=== PATIENT | male | born 1950 | race Caucasian/White ===

== ENCOUNTER 2017-05-24 16:15 | Emergency (ER) | payer MEDICARE, OTHER ==
[~2017-05-24] VITALS: Ht 188 cm; Wt 86.2 kg
[~2017-05-24 16:15] MED LIST: AMOX875T PO; BENZ100C PO; DEXT118L3 PO; HYDR-971 PO; IBUP200C9 PO; MULT1TAB52 PO; OSEL75CA PO; [UNRECOGNIZED DRUG - REMARK]
--- NOTE | 2017-05-24 17:11 | EKG ---
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
[2017-05-24 17:24] LABS: BASO # 0.1 x10^3/uL (0.0-0.2); BASO % 1 % (0-3); EOS # 0.1 x10^3/uL (0.0-0.7); EOS % 1 % (0-3); HEMATOCRIT 44.9 % (39.0-53.0); HEMOGLOBIN 15.3 g/dL (13.0-17.5); LYMPH % 11 % (24-48); MEAN CORPUSCULAR HEMOGLOBIN 29 pg (25-35); MEAN CORPUSCULAR HGB CONC 34 g/dL (31-37); MEAN CORPUSCULAR VOLUME 85 fL (79-100); MONO # 1.3 x10^3/uL (0.0-1.1); MONO % 13 % (0-9); NEUT # 7.2 x10^3uL (1.8-7.7); NEUT % 74 % (31-73); PLATELET COUNT 202 x10^3/uL (140-400); RED BLOOD COUNT 5.31 x10^6/uL (4.30-5.70); RED CELL DISTRIBUTION WIDTH 13.2 % (11.5-14.5); WHITE BLOOD COUNT 9.8 x10^3/uL (4.0-11.0)
[2017-05-24 17:27] LABS: CALCIUM 9.2 mg/dL (8.5-10.1)
[2017-05-24] MEDS ORDERED: ONDANSETRON PF 4 MG/2 ML VIAL. IV ONE (17:30)
[2017-05-24 17:44] LABS: INFLUENZA A PATIENT POSITIVE (NEGATIVE); INFLUENZA B PATIENT NEGATIVE (NEGATIVE)
[2017-05-24] MEDS ORDERED: ALBU2.5V14 NEB (17:47)
[2017-05-24] MEDS ORDERED: OSEL75CA PO (17:50)
--- NOTE | 2017-05-24 17:51 | PHYS DOC ---
Past History Past Medical History: Asthma Past Surgical History: No Surgical History Alcohol Use: None Drug Use: None Adult General Chief Complaint Chief Complaint: SHORTNESS OF BREATH HPI HPI Patient is a [age] year old [sex] who presents with [] Review of Systems Review of Systems Constitutional: Denies fever or chills [] Eyes: Denies change in visual acuity, redness, or eye pain [] HENT: Denies nasal congestion or sore throat [] Respiratory: Denies cough or shortness of breath [] Cardiovascular: No additional information not addressed in HPI [] GI: Denies abdominal pain, nausea, vomiting, bloody stools or diarrhea [] : Denies dysuria or hematuria [] Musculoskeletal: Denies back pain or joint pain [] Integument: Denies rash or skin lesions [] Neurologic: Denies headache, focal weakness or sensory changes [] Endocrine: Denies polyuria or polydipsia [] All other systems were reviewed and found to be within normal limits, except as documented in this note. Current Medications Current Medications Current Medications Medications (Trade) Dose Ordered Sig/Ibis Start Time Stop Time Status Last Admin Dose Admin Ondansetron HCl (Zofran) 4 mg 1X ONCE 05/24/17 17:30 05/24/17 17:31 DC 05/24/17 17:18 4 MG Allergies Allergies Allergies Uncoded Allergies Type Severity Reaction Last Updated Verified MOST ANTIBIOTICS Adverse Reaction Unknown 05/24/17 Physical Exam Physical Exam Constitutional: Well developed, well nourished, no acute distress, non-toxic appearance. [] HENT: Normocephalic, atraumatic, bilateral external ears normal, oropharynx moist, no oral exudates, nose normal. [] Eyes: PERRLA, EOMI, conjunctiva normal, no discharge. [] Neck: Normal range of motion, no tenderness, supple, no stridor. [] Cardiovascular:Heart rate regular rhythm, no murmur [] Lungs & Thorax: Bilateral breath sounds clear to auscultation [] Abdomen: Bowel sounds normal, soft, no tenderness, no masses, no pulsatile masses. [] Skin: Warm, dry, no erythema, no rash. [] Back: No tenderness, no CVA tenderness. [] Extremities: No tenderness, no cyanosis, no clubbing, ROM intact, no edema. [] Neurologic: Alert and oriented X 3, normal motor function, normal sensory function, no focal deficits noted. [] Psychologic: Affect normal, judgement normal, mood normal. [] Current Patient Data Lab Results Laboratory Tests Test 05/24/17 16:45 05/24/17 16:58 White Blood Count 9.8 x10^3/uL (4.0-11.0) Red Blood Count 5.31 x10^6/uL (4.30-5.70) Hemoglobin 15.3 g/dL (13.0-17.5) Hematocrit 44.9 % (39.0-53.0) Mean Corpuscular Volume 85 fL (79-100) Mean Corpuscular Hemoglobin 29 pg (25-35) Mean Corpuscular Hemoglobin Concent 34 g/dL (31-37) Red Cell Distribution Width 13.2 % (11.5-14.5) Platelet Count 202 x10^3/uL (140-400) Neutrophils (%) (Auto) 74 % (31-73) Lymphocytes (%) (Auto) 11 % (24-48) Monocytes (%) (Auto) 13 % (0-9) Eosinophils (%) (Auto) 1 % (0-3) Basophils (%) (Auto) 1 % (0-3) Neutrophils # (Auto) 7.2 x10^3uL (1.8-7.7) Lymphocytes # (Auto) 1.0 x10^3/uL (1.0-4.8) Monocytes # (Auto) 1.3 x10^3/uL (0.0-1.1) Eosinophils # (Auto) 0.1 x10^3/uL (0.0-0.7) Basophils # (Auto) 0.1 x10^3/uL (0.0-0.2) Sodium Level 139 mmol/L (136-145) Chloride Level 103 mmol/L (98-107) Carbon Dioxide Level 24 mmol/L (21-32) Anion Gap 12 (6-14) Blood Urea Nitrogen 17 mg/dL (8-26) Creatinine 1.0 mg/dL (0.7-1.3) Estimated GFR (Cockcroft-Gault) 75.0 Glucose Level 112 mg/dL (70-99) Calcium Level 9.2 mg/dL (8.5-10.1) Troponin I Quantitative < 0.017 ng/mL (0-0.055) Influenza Type A (Rapid) Positive (NEGATIVE) Influenza Type B (Rapid) Negative (NEGATIVE) Laboratory Tests Test 05/24/17 16:45 White Blood Count 9.8 x10^3/uL (4.0-11.0) Red Blood Count 5.31 x10^6/uL (4.30-5.70) Hemoglobin 15.3 g/dL (13.0-17.5) Hematocrit 44.9 % (39.0-53.0) Mean Corpuscular Volume 85 fL (79-100) Mean Corpuscular Hemoglobin 29 pg (25-35) Mean Corpuscular Hemoglobin Concent 34 g/dL (31-37) Red Cell Distribution Width 13.2 % (11.5-14.5) Platelet Count 202 x10^3/uL (140-400) Neutrophils (%) (Auto) 74 % (31-73) H Lymphocytes (%) (Auto) 11 % (24-48) L Monocytes (%) (Auto) 13 % (0-9) H Eosinophils (%) (Auto) 1 % (0-3) Basophils (%) (Auto) 1 % (0-3) Neutrophils # (Auto) 7.2 x10^3uL (1.8-7.7) Lymphocytes # (Auto) 1.0 x10^3/uL (1.0-4.8) Monocytes # (Auto) 1.3 x10^3/uL (0.0-1.1) H Eosinophils # (Auto) 0.1 x10^3/uL (0.0-0.7) Basophils # (Auto) 0.1 x10^3/uL (0.0-0.2) Sodium Level 139 mmol/L (136-145) Potassium Level Pending Chloride Level 103 mmol/L (98-107) Carbon Dioxide Level 24 mmol/L (21-32) Anion Gap 12 (6-14) Blood Urea Nitrogen 17 mg/dL (8-26) Creatinine 1.0 mg/dL (0.7-1.3) Estimated GFR (Cockcroft-Gault) 75.0 Glucose Level 112 mg/dL (70-99) H Calcium Level 9.2 mg/dL (8.5-10.1) Troponin I Quantitative < 0.017 ng/mL (0-0.055) EKG EKG [] Radiology/Procedures Radiology/Procedures [] Course & Med Decision Making Course & Med Decision Making Pertinent Labs and Imaging studies reviewed. (See chart for details) [] Dragon Disclaimer Dragon Disclaimer This electronic medical record was generated, in whole or in part, using a voice recognition dictation system. Departure Departure: Impression: Primary Impression: Asthma exacerbation Additional Impression: Flu Disposition: 01 HOME, SELF-CARE Condition: STABLE Referrals: RADHA ADAME (PCP) Patient Instructions: Asthma, Adult Additional Instructions: Anupam was seen in the emergency department for cough and shortness of breath. No emergency medical condition was found on history or physical exam. He did have normal labs and imaging. His symptoms are most consistent with an asthma exacerbation. He is given a prescription for albuterol and advised continue using his Advair. He was also found to have influenza A and was given a prescription for Tamiflu. He is advised follow-up with his primary care doctor as needed for further management. Scripts Oseltamivir Phosphate (TAMIFLU) 75 Mg Capsule 1 CAP PO BID for 5 Days, #10 CAP Prov: BOZENA MAGANA MD 05/24/17 Albuterol Sulfate (ALBUTEROL SULFATE CONC NEB SOLN) 2.5 Mg/0.5 Ml Vial.neb 1 VIAL NEB Q6HRS for 14 Days, #120 VIAL 0 Refills Prov: BOZENA MAGANA MD 05/24/17 Problem Qualifiers Primary Impression: Asthma exacerbation Asthma severity: mild Asthma persistence: intermittent Qualified Codes: J45.21 - Mild intermittent asthma with (acute) exacerbation BOZENA MAGANA MD May 24, 2017 17:51
[2017-05-24 17:56] VITALS: BP 118/66
[2017-05-24 17:58] LABS: POTASSIUM 4.4 mmol/L (3.5-5.1)
--- NOTE | 2017-05-25 07:36 | RAD ---
Indication: Cough, congestion, fever Technique: Two-view chest radiograph was obtained. Comparison is from May 02, 2015. Findings: The lungs are clear. The cardiopulmonary silhouette is within normal limits. There is no pleural effusion. The bony structures are intact. Impression: No acute thoracic findings.
== END 2017-05-24 18:02 | disposition home or self-care (01) ==
LOC: ER 16:15
DX: J45.21 Mild intermittent asthma with (acute) exacerbation (principal)
CPT/HCPCS: 36415; 71046; 80048; 84484; 85025; 87804; 93005; 96374; 99285; J2405

== ENCOUNTER 2017-11-20 08:34 | Emergency (ER) | payer MEDICARE, OTHER ==
[~2017-11-20] VITALS: Ht 188 cm; Wt 86.2 kg
[~2017-11-20 08:34] MED LIST changes: +ALBU2.5V14 NEB
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
[2017-11-20] MEDS ORDERED: IV NORMAL SALINE 1,000ML 1,000 ML IV ONE (08:45)
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
[2017-11-20] MEDS ORDERED: ETOMIDATE 40 MG/20 ML VIAL. IV ONE (09:15)
[2017-11-20] MEDS ORDERED: ONDANSETRON PF 4 MG/2 ML VIAL. IV ONE ×2 (09:15→11:45)
--- NOTE | 2017-11-20 09:37 | RAD ---
Three-view right shoulder dated 11/20/2017. Comparison made to study dated same day. CLINICAL INDICATION: Reduction of shoulder dislocation. FINDINGS: 3 views of right shoulder show persistent anterior dislocation of the humeral head relative to the glenoid. Possible small impaction fractures of the anterior inferior glenoid and superior lateral humeral head. No displaced fracture. Osseous structures otherwise unremarkable. IMPRESSION: Persistent anterior shoulder dislocation. Electronically signed by: John Howe MD (11/20/2017 9:34 AM) [facility] [place]
[2017-11-20] MEDS ORDERED: KETAMINE HCL 500 MG/10 ML VIAL. IV ONE (10:15)
--- NOTE | 2017-11-20 10:25 | RAD ---
Two-view right shoulder dated 11/20/2017. Comparison made to study dated same day. Clinical data indication: Interval reduction of anterior dislocation. FINDINGS: 2 views right shoulder show interval reduction of anterior dislocation. Clinical humeral alignment is anatomic. There is a subtle curvilinear density along the inferior margin of the glenoid. There is also slight indentation of the superior lateral humeral head. Mild hypertrophic change of the AC joint. IMPRESSION: 1. Interval reduction of anterior dislocation. 2. Bony fragmentation at the inferior glenoid, raising the question of bony Bankart injury. 3. Possible small Hill-Sachs impaction fracture of the superior lateral humeral head. Electronically signed by: John Howe MD (11/20/2017 10:21 AM) [facility] [place]
[2017-11-20] MEDS ORDERED: IBUP800T19 PO (11:55)
[2017-11-20 13:36] VITALS: BP 141/74
== END 2017-11-20 12:48 | disposition home or self-care (01) ==
LOC: ER 08:34
DX: S43.004A Unspecified dislocation of right shoulder joint, initial encounter (principal); J45.909 Unspecified asthma, uncomplicated; Z88.1 Allergy status to other antibiotic agents; V29.9XXA Motorcycle rider (driver) (passenger) injured in unspecified traffic accident, initial encounter; Y93.55 Activity, bike riding; Y99.8 Other external cause status; Y92.89 Other specified places as the place of occurrence of the external cause
CPT/HCPCS: 23650; 73030; 96374; 96376; 99285; J2405; J3010; J3490; 99152; 99153; J7030

== ENCOUNTER 2018-05-22 08:18 | Emergency (ER) | payer MEDICARE, OTHER ==
[~2018-05-22] VITALS: Ht 188 cm; Wt 83.9 kg
[~2018-05-22 08:18] MED LIST changes: +HYDR-3165 PO; -HYDR-971 PO; +IBUP800T19 PO
[2018-05-22] MEDS ORDERED: METH4TAB2 PO (08:54)
[2018-05-22] MEDS ORDERED: AZIT250T PO ×2 (08:54→08:58)
--- NOTE | 2018-05-22 08:54 | PHYS DOC ---
Past History Past Medical History: Asthma, Pneumonia, Other Past Surgical History: Other Alcohol Use: None Drug Use: None Adult General Chief Complaint Chief Complaint: SHORTNESS OF BREATH [facility] HPI Patient is a 68 year old male with history of asthma who presents with complaining of shortness of breath and cough for the last 3 days like his previous episodes of bronchitis and asthma exacerbation. Patient complaining of nonproductive cough and nasal congestion and sore throat because of cough. Patient states that the same problem 3 weeks ago when he was in [place] and treated with antibiotic and prednisone with improvement of his condition. Review of Systems Review of Systems Constitutional: Denies fever or chills [] Eyes: Denies change in visual acuity, redness, or eye pain [] HENT: Reports nasal congestion or sore throat Respiratory: Reports cough and shortness of breath] Cardiovascular: No additional information not addressed in HPI [] GI: Denies abdominal pain, nausea, vomiting, bloody stools or diarrhea [] : Denies dysuria or hematuria [] Musculoskeletal: Denies back pain or joint pain [] Integument: Denies rash or skin lesions [] Neurologic: Denies headache, focal weakness or sensory changes [] Endocrine: Denies polyuria or polydipsia [] All other systems were reviewed and found to be within normal limits, except as documented in this note. Allergies Allergies Allergies Uncoded Allergies Type Severity Reaction Last Updated Verified MOST ANTIBIOTICS Adverse Reaction Unknown 05/24/17 Physical Exam Physical Exam Constitutional: Well developed, well nourished, mild distress, non-toxic appearance. [] HENT: Normocephalic, atraumatic, bilateral external ears normal, oropharynx moist, no oral exudates, nose normal. [] Eyes: PERRLA, EOMI, conjunctiva normal, no discharge. [] Neck: Normal range of motion, no tenderness, supple, no stridor. [] Cardiovascular:Heart rate regular rhythm, no murmur [] Lungs & Thorax: Bilateral breath sounds clear to auscultation [] Abdomen: Bowel sounds normal, soft, no tenderness, no masses, no pulsatile masses. [] Skin: Warm, dry, no erythema, no rash. [] Back: No tenderness, no CVA tenderness. [] Extremities: No tenderness, no cyanosis, no clubbing, ROM intact, no edema. [] Neurologic: Alert and oriented X 3, normal motor function, normal sensory function, no focal deficits noted. [] Psychologic: Affect normal, judgement normal, mood normal. [] EKG EKG Patient interpreted by me. EKG at 0840 showed normal sinus rhythm at rate of 65 , leftward axis, incomplete right bundle-branch block, no acute ST and T-wave abnormalities. Radiology/Procedures Radiology/Procedures [] Course & Med Decision Making Course & Med Decision Making discharge: I've spoken with the patient and/or caregivers. I've explained the patient's condition, diagnosis and treatment plan based on information available to me at this time. I've answered the patient's and/or caregivers questions and addressed any concerns. The patient and/or caregivers have a good understanding the patient's diagnosis, condition and treatment plan as can be expected at this point. Vital signs have been stabilized. The patient's condition is stable for discharge from the emergency department. The patient will pursue further outpatient evaluation with her primary care provider or other designated consulting physician as outlined in the discharge instructions. Patient and/or caregivers are agreeable to this plan of care and follow-up instructions have been explained in detail. The patient and/or caregivers have received these instructions in written format and expressed understanding of these discharge instructions. The patient and her caregivers are aware that if any significant change in condition or worsening of symptoms should prompt him to immediately return to this of the closest emergency department. If an emergent department is not readily available I would encourage him to call 911. Josephineon Disclaimer Dragon Disclaimer This electronic medical record was generated, in whole or in part, using a voice recognition dictation system. Departure Departure: Impression: Primary Impression: Bronchitis with asthma, acute Disposition: HOME, SELF-CARE (at 0 951) Condition: IMPROVED Referrals: RADHA ADAMEP (PCP) Patient Instructions: Acute Bronchitis, Asthma, Adult Additional Instructions: Drink plenty of liquids Follow-up with your primary care physician in 3-5 days Return to ER if not getting better Continue home nebulizer and inhaler Scripts Azithromycin (ZITHROMAX) 250 Mg Tablet 1 PKG PO UD for infection, #1 PKG Prov: BRIAN LOEAR MD 05/22/18 Methylprednisolone (MEDROL) 4 Mg Tab.ds.pk 1 PKG PO UD for inflammation, #1 PKG Prov: BRIAN LOERA MD 05/22/18 BRIAN LOERA MD May 22, 2018 08:54
[2018-05-22] MEDS ORDERED: IPRATRPIUM/ALBUTEROL 0.5/2.5MG 3 ML NEBU. NEB ONE (09:00)
[2018-05-22 09:03] VITALS: BP 109/77
--- NOTE | 2018-05-22 17:34 | EKG ---
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
== END 2018-05-22 09:00 | disposition home or self-care (01) ==
LOC: ER 08:18
DX: J45.909 Unspecified asthma, uncomplicated (principal); Z88.1 Allergy status to other antibiotic agents
CPT/HCPCS: 93005; 94640; 99283; J7620

== ENCOUNTER 2018-05-28 14:28 | Emergency (ER) | payer MEDICARE, OTHER ==
[~2018-05-28] VITALS: Ht 188 cm; Wt 83.9 kg
[~2018-05-28 14:28] MED LIST changes: +AZIT250T PO; +METH4TAB2 PO
[2018-05-28 14:39] VITALS: BP 125/75
[2018-05-28] MEDS: IPRATRPIUM/ALBUTEROL 0.5/2.5MG 3 ML NEBU. NEB ONE (14:57)
[2018-05-28] MEDS ORDERED: predniSONE 10 MG TABLET ONE (15:12)
[2018-05-28] MEDS ORDERED: DEXAMETHASONE 4 MG TABLET ONE (15:18)
--- NOTE | 2018-05-28 15:20 | PHYS DOC ---
Past History Past Medical History: Asthma, Pneumonia, Other Past Surgical History: No Surgical History, Other Alcohol Use: None Drug Use: None Adult General Chief Complaint Chief Complaint: SHORTNESS OF BREATH HPI HPI Patient is 68 yo male who presents with complaint of shortness of breath. Patient reports he has PMH of asthma and was getting ready for oriental orthodox this morning when he reports he felt significant shortness of breath. Patient reports he used his home albuterol and a home nebulizer treatment and laid down. He says he was eventually able to breathe "normally" although his return to baseline took longer than it has previously, which is why he returned to our ED. Additionally pt admits to 1 day of clear nasal drainage and clear sputum production with cough. He denies fevers, purulent discharge, nausea, vomiting, chest pain (although he does admit to chest tightness), palpitations, weakness, LE pain or swelling, dizziness or headaches. 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 Patient reports he went to his physician in [place] where he received azithromycin. Patient presented to [facility] on Tuesday with same symptoms. He was referred to pulmonology which he saw Tuesday. Pulmonology wanted to begin Qvair which was denied by patient's insurance. Patient reports he does have follow up with Pulmonology tomorrow (05/29/18). Review of Systems Review of Systems Constitutional: Denies fever or chills [] Eyes: Denies change in visual acuity, redness, or eye pain [] HENT: Denies nasal congestion or sore throat. Admits clear nasal dc Respiratory: Admits clear sputum production. Admits shortness of breath. Cardiovascular: Denies chest pain or palpitations GI: Denies abdominal pain, nausea, vomiting, or diarrhea [] : Denies dysuria or hematuria [] Integument: Denies rash or skin lesions [] Neurologic: Denies headache, focal weakness or sensory changes [] Complete systems were reviewed and found to be within normal limits, except as documented in this note. Current Medications Current Medications Current Medications Medications (Trade) Dose Ordered Sig/Ibis Start Time Stop Time Status Last Admin Dose Admin Albuterol/ Ipratropium (Duoneb) 3 ml 1X ONCE 05/28/18 15:00 05/28/18 15:01 UNV 05/28/18 14:57 3 ML Dexamethasone (Decadron) 10 mg 1X ONCE 05/28/18 15:00 05/28/18 15:01 UNV Prednisone (Prednisone) 10 mg STK-MED ONCE 05/28/18 15:12 05/28/18 15:14 DC Allergies Allergies Allergies Uncoded Allergies Type Severity Reaction Last Updated Verified MOST ANTIBIOTICS Adverse Reaction Unknown 05/24/17 Physical Exam Physical Exam Constitutional: Well developed, well nourished, no acute distress, non-toxic appearance. [] HENT: Normocephalic, atraumatic, oropharynx moist, no oral exudates, nose normal. [] Eyes: PERRL, EOMI, conjunctiva normal, no discharge. [] Neck: Normal range of motion, no tenderness, supple, no stridor. [] Cardiovascular: Heart rate regular rhythm, no murmur [] Lungs & Thorax: Scattered rhonchi present. Abdomen: Soft, no tenderness Skin: Warm, dry, no erythema, no rash. [] Extremities: No tenderness, ROM intact, no edema. [] Neurologic: Alert and oriented X 3, normal motor function, normal sensory function, no focal deficits noted. [] Current Patient Data Vital Signs Vital Signs Date Time Temp Pulse Resp B/P (MAP) Pulse Ox O2 Delivery O2 Flow Rate FiO2 05/28/18 15:02 95 Room Air 05/28/18 14:39 97.8 59 20 EKG EKG [] Radiology/Procedures Radiology/Procedures []CHEST PA LATERAL Clinical indications: Dyspnea, hoarseness COMPARISON: May 24, 2017. Findings: No acute lung infiltrate or pleural effusion or pulmonary edema or lung mass or pneumothorax is seen. The heart size, pulmonary vasculature, mediastinum and both dustin are unremarkable. The osseous structures appear intact. Impression: No acute radiographic abnormality is seen. Electronically signed by: Doyle Cowart MD (05/28/2018 3:15 PM) [facility] Course & Med Decision Making Course & Med Decision Making Patient is 68 yo male with PMH of asthma in otherwise good health who presents with complaint of shortness of breath. He was seen at this facility Tuesday and referred to pulmonology, whom he followed up with the following day. Pulmonology prescribed medication for the patient however his insurance denied the Qvair prescription, so patient has not received the medication. He was preparing for oriental orthodox this morning when he felt short of breath, completed home treatment with albuterol and home nebulizer, and came to the hospital. He reports he is particularly concerned about dru pneumonia as he has had 3 previous pna diagnoses. On physical exam he appeared well nourished in no acute distress, with scattered rhonchi appreciated throughout all lung sanchez. The rest of the physical exam was noncontributory. Patient received 1 duoneb and IM dexamethasone and reports he felt better following the treatment. CXR was unremarkable. As this is his second presentation for shortness of breath in one week we discussed treatment options with the patient and offered him admission. Patient reported that if his chest xray did not show pneumonia he was comfortable with dc to home and denied admission. 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 Patient was discharged with prednisone prescription and instructed to keep follow up appointment. We discussed with patient that he should return to the ED if shortness of breath worsens, he develops chest pain, or if symptoms do not resolve. Patient stable for discharge with outpatient follow-up with PCP. Discussed findings and plan with patient, who acknowledges understanding and agreement. Dragon Disclaimer Dragon Disclaimer This electronic medical record was generated, in whole or in part, using a voice recognition dictation system. Departure Departure: Impression: Primary Impression: Asthma exacerbation Disposition: 01 HOME, SELF-CARE Condition: IMPROVED Referrals: PCP,WALLACE (PCP) Patient Instructions: Asthma, Acute Bronchospasm Additional Instructions: Continue nebulizer treatment as previously prescribed. Please follow up with your lung doctor in the next 1-2 days. Problem Qualifiers Primary Impression: Asthma exacerbation Asthma severity: mild Asthma persistence: intermittent Qualified Codes: J45.21 - Mild intermittent asthma with (acute) exacerbation PABLITO HOUSE DO May 28, 2018 15:20
[2018-05-28] MEDS: DEXAMETHASONE 4 MG TABLET PO ONE (15:21)
== END 2018-05-28 15:21 | disposition home or self-care (01) ==
LOC: ER 14:28
DX: J45.21 Mild intermittent asthma with (acute) exacerbation (principal); Z88.1 Allergy status to other antibiotic agents
CPT/HCPCS: 71046; 94640; 99283; J7620; J8540

== ENCOUNTER 2018-09-20 06:32 | Emergency (ER) | payer MEDICARE, OTHER ==
[~2018-09-20] VITALS: Ht 188 cm; Wt 83.9 kg
[2018-09-20 06:33] VITALS: BP 125/75
[2018-09-20] MEDS ORDERED: PRED50TA PO (07:27)
[2018-09-20] MEDS ORDERED: AZIT250T6 PO (07:27)
--- NOTE | 2018-09-20 07:39 | RAD ---
Chest, 2 views, 09/20/2018: HISTORY: Shortness of breath Comparison is made to a study from 05/28/2018. The heart size and pulmonary vascularity are normal. No pulmonary infiltrate is seen. There is no evidence of pleural fluid. IMPRESSION: No acute cardiopulmonary abnormality is detected. Electronically signed by: Hank Dickinson MD (09/20/2018 7:36 AM) [facility]
--- NOTE | 2018-09-20 08:04 | PHYS DOC ---
Past History Past Medical History: Asthma, Pneumonia, Other Past Surgical History: No Surgical History, Other Alcohol Use: None Drug Use: None Adult General Chief Complaint Chief Complaint: COUGH HPI HPI Patient is a 68-year-old male with a known history of asthma who is presenting with chief complaint of sinus congestion right ear fullness cough productive of yellow sputum some mild shortness of breath that he does take albuterol and it does help slowly worsening with time no definite fever but he did have night sweats the last couple of days symptoms are worsening with time no other exacerbating factors pain is dull similar to last time he was here in May and then 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 Review of Systems Review of Systems Constitutional: Denies fever or chills [] Eyes: Cardiovascular: No additional information not addressed in HPI [] GI: Denies abdominal pain, nausea, vomiting, bloody stools or diarrhea [] : Denies dysuria or hematuria [] Musculoskeletal: Denies back pain or joint pain [] Integument: Denies rash or skin lesions [] Neurologic: Denies headache, focal weakness or sensory changes [] Endocrine: Denies polyuria or polydipsia [] All other systems were reviewed and found to be within normal limits, except as documented in this note. Allergies Allergies Allergies Uncoded Allergies Type Severity Reaction Last Updated Verified MOST ANTIBIOTICS Adverse Reaction Unknown 05/24/17 Physical Exam Physical Exam Constitutional: Well developed, well nourished, no acute distress, non-toxic appearance. [] HENT: Normocephalic, atraumatic, bilateral external ears normal, oropharynx moist, no oral exudates, nose normal. []TMs are occluded by cerumen. Eyes: PERRLA, EOMI, conjunctiva normal, no discharge. [] Neck: Normal range of motion, no tenderness, supple, no stridor. [] Cardiovascular:Heart rate regular rhythm, no murmur [] Lungs & Thorax: Bilateral breath sounds clear to auscultation [] Abdomen: Bowel sounds normal, soft, no tenderness, no masses, no pulsatile masses. [] Skin: Warm, dry, no erythema, no rash. [] Extremities: No tenderness, no cyanosis, no clubbing, ROM intact, no edema. [] Neurologic: Alert and oriented X 3, normal motor function, normal sensory function, no focal deficits noted. [] Psychologic: Affect normal, judgement normal, mood normal. [] Current Patient Data Vital Signs Vital Signs Date Time Temp Pulse Resp B/P (MAP) Pulse Ox O2 Delivery O2 Flow Rate FiO2 09/20/18 06:33 97.8 65 20 98 Room Air EKG EKG [] Radiology/Procedures Radiology/Procedures [] Impressions: CXR NEGATIVE Course & Med Decision Making Course & Med Decision Making Pertinent Labs and Imaging studies reviewed. (See chart for details) []68-year-old male with known asthma presenting with upper respiratory infection so worsening times one week x-ray negative plan for antibiotics and steroids. We talked with respect benefits of antibiotics and steroids and he really wants to try them to see being get better sooner which I think is reasonable he is overall well-appearing. Dragon Disclaimer Dragon Disclaimer This electronic medical record was generated, in whole or in part, using a voice recognition dictation system. Departure Departure: Impression: Primary Impression: Cough Disposition: HOME, SELF-CARE Condition: STABLE Patient Instructions: Cough, Adult, [id number] Scripts Azithromycin (AZITHROMYCIN TABLET) 250 Mg Tablet 1 PKG PO UD for asthma, #6 TAB Prov: NAN ONEAL MD 09/20/18 Prednisone (PREDNISONE) 50 Mg Tablet 1 TAB PO DAILY for asthma, #5 TAB Prov: NAN ONEAL MD 09/20/18 NAN ONEAL MD September 20, 2018 08:04
== END 2018-09-20 07:54 | disposition home or self-care (01) ==
LOC: ER 06:32
DX: R05 Cough (principal); R09.81 Nasal congestion; R06.02 Shortness of breath; J45.909 Unspecified asthma, uncomplicated; Z88.1 Allergy status to other antibiotic agents
CPT/HCPCS: 71046; 99284